=== PATIENT | female | born 1955 | race Caucasian/White ===

== ENCOUNTER → 2020-04-21 | Outpatient (CLI) | payer MEDICARE, OTHER | END | disposition home or self-care (01) | LOC: LABWHC1 10:25 | PROVIDERS: ATTEND Internal Medicine | DX: Z03.818 Encounter for observation for suspected exposure to other biological agents ruled out (principal) | CPT/HCPCS: 36415; 86769 ==

== ENCOUNTER → 2020-10-28 | Outpatient (CLI) | payer MEDICARE ==
--- NOTE | 2020-11-09 10:01 | MM ---
Reason for exam: screening (asymptomatic). Last mammogram was performed 2 years and 11 months ago. History: Patient is postmenopausal. Physical Findings: A clinical breast exam by your physician is recommended on an annual basis and results should be correlated with mammographic findings. MG Screening Mammo w CAD Bilateral CC and MLO view(s) were taken. Prior study comparison: December 08, 2017, mammogram, performed at [place]. December 07, 2017, mammogram, performed at [place]. The breast tissue is heterogeneously dense. This may lower the sensitivity of mammography. Stable benign calcifications. There is no discrete abnormality. No significant changes when compared with prior studies. ASSESSMENT: Benign, BI-RAD 2 RECOMMENDATION: Routine screening mammogram of both breasts in 1 year.
== END | disposition home or self-care (01) ==
LOC: RADMAMWWP 09:54
PROVIDERS: ATTEND Internal Medicine
DX: Z12.31 Encounter for screening mammogram for malignant neoplasm of breast (principal)
CPT/HCPCS: 77067

== ENCOUNTER → 2020-11-06 | Outpatient (CLI) | payer MEDICARE, OTHER ==
--- NOTE | 2020-11-06 16:08 | BD ---
EXAMINATION TYPE: Axial Bone Density DATE OF EXAM: 11/06/2020 COMPARISON: NONE CLINICAL HISTORY: Height: 5 FT 2 IN Weight: 166 FRAX RISK QUESTIONS: Alcohol (3 or more units per day): NO Family History (Parent hip fracture): NO Glucocorticoids (More than 3mos): NO (Ex: prednisone, prednisolone, methylprednisolone, dexamethasone, and hydrocortisone). History of Fracture in Adulthood: NO Secondary Osteoporosis: 1. Type 1 Diabetes: NO 2. Hyperthyroidism: NO 3. Menopause before 45: NO 4. Malnutrition: NO 5. Chronic liver disease: NO Rheumatoid Arthritis: NO Current Tobacco Use: NO RISK FACTORS HISTORY OF: Family History of Osteoporosis: YES Active: YES Diet low in dairy products/other sources of calcium: NO Postmenopausal woman: AGE 45 Take estrogen and/or progesterone medications: TOOK HRT FOR SEV YEARS AFTER AGE 45 UNSURE HOW LONG Lost more than 2 inches in height since high school: NO MEDICATIONS: Additional Medications: BLOOD PRESSURE MEDS, MELOXICAM, CYCLOBEZAPRINE Additional History: EXAM MEASUREMENTS: Bone mineral densitometry was performed using the [employer]. Bone mineral density as measured about the Lumbar spine is: ----- L1-L4(G/cm2): 1.100 T Score Values are as follows: ----- L2: -0.9 ----- L3: -0.6 ----- L4: -1.7 ----- L1-L4: -0.7 BASELINE Bone mineral density about the R hip (g/cm2): 0.800 Bone mineral density about the L hip (g/cm2): 0.831 T Score values are as follows: -----R Neck: -1.7 -----L Neck: -1.5 -----R Total: -0.7 -----L Total: -0.7 BASELINE IMPRESSION: Osteopenia (T Score between -2.5 and -1). There is slightly increased risk of fracture and the patient may be considered for treatment. Re-Screen 2-5 years. NOTE: T-SCORE=SD OF THE YOUNG ADULT MEAN.
== END | disposition home or self-care (01) ==
LOC: RADBDWWP 13:02
PROVIDERS: ATTEND Internal Medicine
DX: M85.80 Other specified disorders of bone density and structure, unspecified site (principal); M85.9 Disorder of bone density and structure, unspecified
CPT/HCPCS: 77080

== ENCOUNTER → 2021-06-25 | Outpatient (CLI) | payer MEDICARE | END | disposition home or self-care (01) | LOC: LABWHC1 12:26 | PROVIDERS: ATTEND Internal Medicine | DX: Z01.84 Encounter for antibody response examination (principal) | CPT/HCPCS: 36415; 86769 ==

== ENCOUNTER → 2021-09-24 | Outpatient (CLI) | payer MEDICARE ==
[~2021-09-24] MED LIST: BAMLANIVIMAB (EUA) 700 MG, ETESEVIMAB (EUA) 1,400 MG in SODIUM CHLORIDE 0.9% 50 ML IVPB NR; SODIUM CHLORIDE 0.9% 50 ML IVPB NR; SODIUM CHLORIDE 0.9% 500 ML 500 ML in EMPTY BAG 1 BAG IV PRN
[2021-09-24 07:58] VITALS: RESP 16
[2021-09-24 09:13] VITALS: BP 117/74; PULSE 63; TEMP 98.8
== END ==
LOC: PROCWHC3 07:11
PROVIDERS: ATTEND Family Medicine
DX: U07.1 COVID-19 (principal); Z88.1 Allergy status to other antibiotic agents; Z88.8 Allergy status to other drugs, medicaments and biological substances
CPT/HCPCS: 96361; 96365; J3490; M0245

== ENCOUNTER → 2022-02-17 | Outpatient (CLI) | payer MEDICARE, OTHER | END | disposition home or self-care (01) | LOC: LABWHC1 13:52 | PROVIDERS: ATTEND Internal Medicine | DX: U07.1 COVID-19 (principal) | CPT/HCPCS: 36415; 86769 ==

== ENCOUNTER 2022-02-21 11:19 | Emergency (ER) | payer MEDICARE, OTHER ==
[2022-02-21 11:24] VITALS: TEMP 97.8
[2022-02-21] MEDS ORDERED: FAMOTIDINE 20 MG/2 ML VIAL IV STA (11:51)
[2022-02-21] MEDS ORDERED: diphenhydrAMINE 50 MG/ML 1 ML VIAL IVP STA (11:51)
[2022-02-21] MEDS ORDERED: methylPREDNISolone SOD SUCCI 125 MG/2 ML VIAL IV STA (11:51)
--- NOTE | 2022-02-21 12:16 | ED ---
General Adult HPI - General Chief complaint: Allergic Reaction Stated complaint: allergic reaction Time Seen by Provider: 02/21/22 11:30 Source: patient, RN notes reviewed, old records reviewed Mode of arrival: ambulatory Limitations: no limitations - History of Present Illness Initial comments: This is a 66-year-old female presents emergency Department stating that she's having ALLERGIC reaction. Patient states yesterday after dinner she started getting itching on her hands and then noted her arms are itchy and the itching progressed to her back and her abdomen. Patient noted hives on her arms back and abdomen. Patient also stated that her lips are swollen is able to no longer swollen today. Patient states her throat feels scratchy and she can feel a different sensation in throat when she swallows but she's having no problems swallowing patient states she has a little tightness when she tries to breathe but she's not having any shortness of breath. Patient denies having this type of ALLERGIC reaction before. Patient states she has had no soaps lotions or foods route of the ordinary. - Related Data Home Medications Medication Instructions Recorded Confirmed Acetylcysteine [Nac] 500 mg PO DAILY 09/24/21 02/21/22 Alpha Lipoic Acid 50 mg PO DAILY 09/24/21 02/21/22 Ascorbic Acid [Vitamin C] 1,000 mg PO DAILY 09/24/21 02/21/22 B Complex W-C No.20/Folic Acid 1 mg PO DAILY 09/24/21 02/21/22 [Renal Caps Softgel] B12/Levomefolate Calcium/B-6 1 tab PO DAILY 09/24/21 02/21/22 [Foltx Tablet] Cholecalciferol (Vitamin D3) 250 mcg PO DAILY 09/24/21 02/21/22 [Vitamin D3 (125 MCG = 5,000 IU)] Fish Oil/Dha/Epa [Fish Oil 1,200 1 cap PO DAILY 09/24/21 02/21/22 mg Fish Oil] Folic Acid 0.8 mg PO DAILY 09/24/21 02/21/22 Garlic 1 tab PO DAILY 09/24/21 02/21/22 K2 M7 1 cap PO DAILY 09/24/21 02/21/22 L Cytraline 1 tab PO DAILY 09/24/21 02/21/22 Magnesium 200 mg PO DAILY 09/24/21 02/21/22 Red Yeast Rice 600 mg PO DAILY 09/24/21 02/21/22 Turmeric Root Extract [Turmeric] 500 mg PO DAILY 09/24/21 02/21/22 Ubidecarenone [Co Q-10] 100 mg PO DAILY 09/24/21 02/21/22 Vitamin A [Vitamin A (8,000 Units 2,400 mcg PO DAILY 09/24/21 02/21/22 = 2,400 MCG)] Vitamin E (Dl,Tocopheryl Acet) 200 unit PO DAILY 09/24/21 02/21/22 [Vitamin E] Zinc 50 mg PO DAILY 09/24/21 02/21/22 Cyclobenzaprine [Flexeril] 10 mg PO HS PRN 02/21/22 02/21/22 Naproxen Sodium [Aleve] 220 mg PO DAILY PRN 02/21/22 02/21/22 Quercetin 1 tab PO DAILY 02/21/22 02/21/22 Selenium 50 mcg PO DAILY 02/21/22 02/21/22 Verapamil HCl [Verapamil ER] 180 mg PO DAILY 02/21/22 02/21/22 Vit C/E/Zn/Coppr/Lutein/Zeaxan 1 cap PO DAILY 02/21/22 02/21/22 [Preservision Areds 2 Softgel] Previous Rx's Medication Instructions Recorded predniSONE [Deltasone] 40 mg PO DAILY #8 tab 02/21/22 Allergies Allergy/AdvReac Type Severity Reaction Status Date / Time ampicillin Allergy Anaphylaxis Verified 02/21/22 11:55 nickel AdvReac Rash/Hives Verified 02/21/22 11:55 Review of Systems ROS Statement: Those systems with pertinent positive or pertinent negative responses have been documented in the HPI. ROS Other: All systems not noted in ROS Statement are negative. Past Medical History Past Medical History: Hypertension History of Any Multi-Drug Resistant Organisms: None Reported Past Surgical History: Section Additional Past Surgical History / Comment(s): LEFT SALPINGO OOPHERECTOMY Smoking Status: Never smoker Past Alcohol Use History: None Reported Past Drug Use History: None Reported General Exam - General Exam Comments Initial Comments: GENERAL: Patient is well-developed and well-nourished. Patient is nontoxic and well- hydrated and is in mild distress. ENT: Neck is soft and supple. No significant lymphadenopathy is noted. Oropharynx is clear. Moist mucous membranes. Neck has full range of motion without eliciting any pain. EYES: The sclera were anicteric and conjunctiva were pink and moist. Extraocular movements were intact and pupils were equal round and reactive to light. Eyelids were unremarkable. PULMONARY: Unlabored respirations. Good breath sounds bilaterally. No audible rales rhonchi or wheezing was noted. CARDIOVASCULAR: There is a regular rate and rhythm without any murmurs gallops or rubs. ABDOMEN: Soft and nontender with normal bowel sounds. No palpable organomegaly was noted. There is no palpable pulsatile mass. SKIN: Patient has hives on her arms abdomen and back. NEUROLOGIC: Patient is alert and oriented x3. Cranial nerves II through XII are grossly intact. Motor and sensory are also intact. Normal speech, volume and content. Symmetrical smile. MUSCULOSKELETAL: Normal extremities with adequate strength and full range of motion. LYMPHATICS: No significant lymphadenopathy is noted PSYCHIATRIC: Normal psychiatric evaluation. Limitations: no limitations Course Vital Signs 02/21/22 11:22 Temperature 97.8 F Pulse Rate 101 H Respiratory 18 Rate Blood Pressure 120/76 O2 Sat by Pulse 98 Oximetry Medical Decision Making - Medical Decision Making Patient received Benadryl and Pepcid and Solu-Medrol in the hospital was doing considerably better after about an hour so patient will be discharged home with steroids. Disposition Clinical Impression: Allergic reaction Disposition: HOME SELF-CARE Condition: Good Instructions (If sedation given, give patient instructions): General Allergic Reaction (ED) Additional Instructions: Patient can take Benadryl when necessary every 6 hours Patient should return to the emergency department as any difficulty breathing or shortness of breath. Prescriptions: predniSONE [Deltasone] 40 mg PO DAILY #8 tab Is patient prescribed a controlled substance at d/c from ED?: No Referrals: Linda Quezada MD [Primary Care Provider] - 1-2 days Time of Disposition: 13:06
[2022-02-21 13:42] VITALS: BP 125/77; PULSE 75; RESP 16
== END 2022-02-21 13:43 | disposition home or self-care (01) ==
LOC: EC 11:19
DX: T78.49XA Other allergy, initial encounter (principal); I10 Essential (primary) hypertension
CPT/HCPCS: 99283; 96374; 96375 ×2; J1200; J2930